=== PATIENT | female | born 1975 ===

== ENCOUNTER → 2024-11-30 15:56 | Outpatient (CLI) | payer OTHER, SELFPAY ==
--- NOTE | 2024-11-30 15:59 | DI.US.S_ITS ---
PROCEDURE: US PELVIC COMPLETE INDICATIONS: menorrhagia, AUB TECHNIQUE: Real-time scanning was performed of the pelvic organs, with image documentation. Additional endovaginal scanning was necessary due to incomplete visualization of the adnexal and endometrial structures by transabdominal scanning. COMPARISON: None. FINDINGS: Uterus: Uterus is anteverted and normal in size at 10.1 x 6.9 x 6.3 cm. The myometrium is heterogeneous. The endometrium measures 5 mm combined thickness. 2 uterine fibroids are seen. Right subserosal 5.4 x 5.3 x 5.1 cm. Left intramural 3.3 x 3.1 x 2.4 cm. Ovaries: Right ovary is not seen. Left ovary measures 2.6 x 2.1 x 1.7 cm, volume of 2 cc. Left ovarian hypoechoic mass measuring 2 x 1.8 x 1.2 cm. Peripheral vascularity is seen. Posterior acoustic enhancement. Other: No pathologic free abdominal or pelvic fluid. IMPRESSION: 1. Endometrium measures 5 mm. 2. Uterine fibroids x2. A larger subserosal fibroid measuring 5.4 cm. 3. Left ovarian hypoechoic mass measuring 2 cm. -Pelvic MRI with IV contrast would be helpful for further characterization. Short-term follow-up pelvic ultrasound could also be considered. 4. The right ovary is not seen. We strive to produce accurate, complete, and clear reports of imaging services. To assist us in improving patient care, this report was composed using standard report templates and voice recognition software. Therefore, it may contain abnormal punctuation, insertions and/or omissions. Occasional wrong-word or sound-alike substitutions may occur. Though we review the report and make efforts to correct it, we do recommend that the report be read carefully in proper context to recognize any text inaccuracies. Dictated by: Jean Case M.D. on 11/30/2024 at 17:42 Approved by: Jean Case M.D. on 11/30/2024 at 17:52
== END ==
LOC: US 15:58
PROVIDERS: Referring Provider Family Medicine; Visit Provider Family Medicine
DX: N92.0 Excessive and frequent menstruation with regular cycle (principal); N93.9 Abnormal uterine and vaginal bleeding, unspecified; D25.1 Intramural leiomyoma of uterus; D25.2 Subserosal leiomyoma of uterus; N83.9 Noninflammatory disorder of ovary, fallopian tube and broad ligament, unspecified
CPT/HCPCS: 76830; 76856

== ENCOUNTER → 2024-12-01 11:01 | Outpatient (CLI) | payer OTHER, SELFPAY ==
[2024-12-01 18:47] LABS: Alanine Aminotransferase 23 IU/L (<35); Albumin 4.3 g/dL (3.5-5.0); Albumin Globulin Ratio 1.7 (1.0-2.8); Alkaline Phosphatase 63 U/L (38-126); Blood Urea Nitrogen 12 mg/dL (7-17); Calcium 9.0 mg/dL (8.4-10.2); Carbon Dioxide 27 mmol/L (22-32); Chloride 102 mmol/L (98-107); Estimated Glomerular Filt Rate > 60 mL/min (>60); Globulin 2.6 g/dL (1.7-4.1); Glucose 125 mg/dL (70-99); HEMOLYSIS < 15 (0-50); Potassium 3.9 mmol/L (3.4-5.1); Sodium 138 mmol/L (137-145); Total Protein 6.9 g/dL (6.3-8.2)
[2024-12-01 19:01] LABS: HEMOLYSIS < 15 (0-50); Iron 42 ug/dL (37-170)
[2024-12-01 19:04] LABS: HCG Quantitative /Beta subunit 7.41 mIU/mL
[2024-12-01 19:05] LABS: Follicle Stimulating Hormone 88.4 mIU/mL
[2024-12-01 19:14] LABS: Add Manual Diff / Slide Review NO; Hematocrit 21.2 % (36-46); Hemoglobin 7.3 g/dL (12.0-16.0); Lymphocytes Absolute Auto 600 /uL (1100-4500); Mean Corpuscular HGB Conc 34.4 % (30-36); Mean Corpuscular Hemoglobin 30.1 PG (26-34); Mean Corpuscular Volume 87.7 fL (80-100); Platelet Count 378 X10^3/uL (150-400)
[2024-12-01 19:17] LABS: Percent Iron Saturation 12 % (15-50); Total Iron Binding Capacity 356 ug/dL (265-497); Transferrin 308 mg/dL (206-381)
[2024-12-01 19:22] LABS: Ferritin 30 ng/mL (6-137)
== END ==
PROVIDERS: Visit Provider Family Medicine
DX: N93.9 Abnormal uterine and vaginal bleeding, unspecified (principal); N92.0 Excessive and frequent menstruation with regular cycle; D50.9 Iron deficiency anemia, unspecified
CPT/HCPCS: 80053; 82728; 83001; 83540; 83550; 84702; 85025